=== PATIENT | male | born 1965 | race Two or more races ===

== ENCOUNTER 2017-11-01 11:38 | Outpatient (CLI) | payer OTHER | END 2017-11-01 13:02 | disposition home or self-care (01) | LOC: RAD 501 11:38 | DX: M25.511 Pain in right shoulder (principal) ==

== ENCOUNTER → 2017-11-04 | Outpatient (CLI) | payer OTHER | END | disposition home or self-care (01) | LOC: SONOGRAMA 14:56 | DX: M25.511 Pain in right shoulder (principal) ==

== ENCOUNTER 2018-07-26 11:00 | Outpatient (CLI) | payer OTHER | END 2018-07-26 11:01 | disposition home or self-care (01) | LOC: SONOGRAMA 11:00 → MAMO-SONO 11:15 | DX: R22.1 Localized swelling, mass and lump, neck (principal) ==

== ENCOUNTER 2018-08-01 14:27 | Outpatient (CLI) | payer OTHER ==
[~2018-08-01] VITALS: Ht 172.7 cm; Wt 66.2 kg
== END 2018-08-01 14:40 | disposition home or self-care (01) ==
LOC: OFIC 805 14:27
DX: M54.2 Cervicalgia (principal); R22.1 Localized swelling, mass and lump, neck; R06.02 Shortness of breath

== ENCOUNTER 2018-08-11 09:10 | Outpatient (CLI) | payer OTHER | END 2018-08-11 09:12 | disposition home or self-care (01) | LOC: SONOGRAMA 09:10 | DX: R22.1 Localized swelling, mass and lump, neck (principal) ==

== ENCOUNTER 2022-03-06 10:08 | Outpatient (CLI) | payer OTHER | END 2022-03-06 10:21 | disposition home or self-care (01) | LOC: TOM 10:08 | PROVIDERS: ATTEND General Practice | DX: G44.221 Chronic tension-type headache, intractable (principal) ==

== ENCOUNTER → 2024-02-08 10:01 | Outpatient (CLI) | payer OTHER | END | disposition home or self-care (01) | LOC: RAD 10:01 | PROVIDERS: ATTEND General Practice | DX: G62.9 Polyneuropathy, unspecified (principal) ==

== ENCOUNTER → 2025-04-11 | Outpatient (CLI) | payer OTHER | END | disposition home or self-care (01) | LOC: RAD 11:41 | PROVIDERS: ATTEND General Practice | DX: M54.50 Low back pain, unspecified (principal); G62.9 Polyneuropathy, unspecified ==

== ENCOUNTER 2025-04-13 12:22 | Outpatient (CLI) | payer OTHER | END 2025-04-13 12:25 | disposition home or self-care (01) | LOC: MRI 12:22 | PROVIDERS: ATTEND General Practice | DX: M41.87 Other forms of scoliosis, lumbosacral region (principal); M51.360 Other intervertebral disc degeneration, lumbar region with discogenic back pain only; M54.50 Low back pain, unspecified; M79.2 Neuralgia and neuritis, unspecified; R26.2 Difficulty in walking, not elsewhere classified | CPT/HCPCS: 72148 ==